=== PATIENT | female | born 1980 | race Caucasian/White ===

== ENCOUNTER → 2017-02-26 | Outpatient (CLI) | payer BC | LOC: MW.LAB 13:02 | PROVIDERS: ATTEND Internal Medicine | DX: E89.0 Postprocedural hypothyroidism (principal) | CPT/HCPCS: 36415; 84432; 84443; 86800 ==

== ENCOUNTER 2023-11-09 10:55 | Emergency (ER) | payer BC ==
[2023-11-09] MEDS ORDERED: Sodium Chloride 0.9% 2.5 ML Syringe FLUSH PRN (11:30)
[2023-11-09] MEDS ORDERED: Sodium Chloride 0.9% 10 ML Syringe FLUSH PRN (11:30)
[2023-11-09] MEDS ORDERED: Aspirin 81 MG Tab.Chew PO ONE (11:49)
[2023-11-09 12:03] LABS: BASOPHILS ABSOLUTE AUTO 0.05 K/uL (0.00-0.20); BASOPHILS PERCENT AUTO 0.7 % (0.0-1.0); EOSINOPHILS ABSOLUTE AUTO 0.17 K/uL (0.00-0.45); EOSINOPHILS PERCENT AUTO 2.2 % (0.0-6.0); HEMATOCRIT 42.1 % (37.0-47.0); HEMOGLOBIN 14.3 g/dL (12.0-16.0); IMMATURE GRAN ABSOLUTE AUTO 0.03 K/uL (0.00-0.05); IMMATURE GRAN PERCENT AUTO 0.4 % (0.0-0.4); LYMPHOCYTES ABSOLUTE AUTO 2.06 K/uL (1.00-4.80); LYMPHOCYTES PERCENT AUTO 27.1 % (24.0-44.0); MEAN CORPUSCULAR HEMOGLOBIN 27.1 pg (28.0-32.0); MEAN CORPUSCULAR VOLUME 79.9 fL (83.0-99.0); MEAN PLATELET VOLUME 11.9 fL (9.4-12.3); MONOCYTES ABSOLUTE AUTO 0.58 K/uL (0.00-0.80); MONOCYTES PERCENT AUTO 7.6 % (0.0-8.0); NEUTROPHILS ABSOLUTE AUTO 4.72 K/uL (1.80-7.70); PLATELET COUNT,PLT 205 K/uL (150-400); RED BLOOD CELL COUNT 5.27 M/uL (4.10-5.30); WHITE BLOOD CELL COUNT,WBC 7.61 K/uL (3.9-11.3)
[2023-11-09 12:19] LABS: HEMOGLOBIN A1C 5.8 %
[2023-11-09 12:33] LABS: ALANINE AMINOTRANSFERASE,ALT 16 IU/L (14-63); ALBUMIN 3.5 g/dL (3.4-5.0); ALKALINE PHOSPHATASE 48 U/L (46-116); ASPARTATE AMNIOTRANSFERASE,AST 12 IU/L (15-37); BILIRUBIN TOTAL 0.6 mg/dL (0.2-1.0); BLOOD UREA NITROGEN,BUN 11 mg/dL (7.0-18.0); CALCIUM 9.4 mg/dL (8.5-10.1); CARBON DIOXIDE,CO2 26.8 mmol/L (21.0-32.0); CHLORIDE,CL 103 mmol/L (98-107); CREATININE 0.6 mg/dL (0.6-1.0); GLUCOSE RANDOM 102 mg/dL (74-106); POTASSIUM,K 4.2 mmol/L (3.5-5.1); SODIUM,NA 140 mmol/L (136-145)
[2023-11-09 12:35] LABS: ESTIMATED GFR 114 mL/min (>60)
[2023-11-09] MEDS ORDERED: Iopamidol 755 MG/ML 500 ML Multipack Bottle IVPUSH STA (13:06)
[2023-11-09 19:31] VITALS: BP 129/86; PULSE 93
== END 2023-11-09 17:12 | disposition home or self-care (01) ==
LOC: MW.ED 10:55
DX: G45.9 Transient cerebral ischemic attack, unspecified (principal); I10 Essential (primary) hypertension; E78.00 Pure hypercholesterolemia, unspecified; E11.9 Type 2 diabetes mellitus without complications; Z79.82 Long term (current) use of aspirin; Z79.899 Other long term (current) drug therapy; Z88.1 Allergy status to other antibiotic agents
CPT/HCPCS: 36415; 70450; 70496; 70498; 70551; 80053; 83036; 84484; 84703; 85025; 93005; 93246; 93306; 99284; A9270; J3490; Q9967; 93010; 99285

== ENCOUNTER 2024-09-30 07:00 | Day surgery (SDC) | payer BC ==
[2024-09-30] MEDS ORDERED: Metoclopramide 10 MG/2 ML SDV IVPUSH PRN (07:13)
[2024-09-30] MEDS ORDERED: Morphine 2 MG/ML SYRINGE IVPUSH PRN (07:13)
[2024-09-30] MEDS ORDERED: fentaNYL 50 MCG/ML SDV IVPUSH PRN (07:13)
[2024-09-30] MEDS ORDERED: Albuterol 0.083% 2.5 MG/3 ML Neb Soln NEB PRN (07:13)
[2024-09-30] MEDS ORDERED: Phenylephrine HCl In 0.9% NaCl 1 MG/10 ML Syringe IVPUSH PRN (07:13)
[2024-09-30] MEDS ORDERED: Naloxone 0.4 MG/ML SDV IVPUSH PRN (07:13)
[2024-09-30] MEDS ORDERED: Ondansetron 4 MG/2 ML SDV IVPUSH PRN ×2 (07:13→11:06)
[2024-09-30] MEDS ORDERED: Bupivacaine 0.25% 30 ML SDV ONE ×2 (08:11→08:30)
[2024-09-30] MEDS ORDERED: Methylene Blue 100 MG/10 ML SDV ONE (08:11)
[2024-09-30] MEDS ORDERED: Propofol 200 MG/20 ML SDV ONE (08:25)
[2024-09-30] MEDS ORDERED: fentaNYL 100 MCG/2 ML SDV ONE ×2 (08:25→11:21)
[2024-09-30] MEDS ORDERED: Midazolam 1 MG/ML 2 ML SDV ONE (08:25)
[2024-09-30] MEDS ORDERED: Rocuronium Bromide 50 MG/5 ML Syringe ONE ×2 (08:26→09:51)
[2024-09-30] MEDS ORDERED: Lidocaine 2% 5 ML SDV ONE (08:26)
[2024-09-30] MEDS ORDERED: Ropivacaine 0.5% 5 MG/ML 30 ML SDV ONE (08:30)
[2024-09-30] MEDS ORDERED: Water For Injection, Sterile 20 ML ONE (08:50)
[2024-09-30] MEDS: Lactated Ringers 1,000 ML IV SCH (08:51)
[2024-09-30] MEDS ORDERED: dexmedeTOMIDine HCl 200 MCG/2 ML SDV ONE (08:51)
[2024-09-30] MEDS ORDERED: Sodium Chloride 0.9% 2.5 ML Syringe FLUSH PRN (08:58)
[2024-09-30] MEDS ORDERED: ceFAZolin 2 GM in Sodium Chloride 0.9% 50 ML IV ONE (08:58)
[2024-09-30] MEDS ORDERED: Sodium Chloride 0.9% 20 ML SDV IV PRN (08:58)
[2024-09-30] MEDS ORDERED: ceFAZolin 1 GM Vial ONE (09:22)
[2024-09-30] MEDS ORDERED: Fluorescein 5 ML Vial ONE (09:31)
[2024-09-30] MEDS ORDERED: Glycopyrrolate 0.2 MG/ML SDV ONE (09:42)
[2024-09-30] MEDS ORDERED: Ondansetron 4 MG/2 ML SDV ONE (10:13)
[2024-09-30] MEDS ORDERED: Ketorolac 30 MG/ML SDV ONE (10:13)
[2024-09-30] MEDS ORDERED: Sugammadex Sodium 200 MG/2 ML VIAL IV ONE (10:13)
[2024-09-30] MEDS ORDERED: Furosemide 40 MG/4 ML VIAL ONE (10:36)
[2024-09-30] MEDS ORDERED: Ketorolac 30 MG/ML SDV IVPUSH ONE (11:06)
[2024-09-30] MEDS ORDERED: Promethazine 25 MG/ML SDV IM PRN (11:06)
[2024-09-30] MEDS ORDERED: Sodium Chloride 0.9% 1,000 ML IV SCH (11:15)
[2024-09-30] MEDS: HYDROmorphone 1 MG/ML Syringe IVPUSH PRN (11:40)
[2024-09-30] MEDS: Morphine 4 MG/ML Syringe IVPUSH PRN (15:20)
[2024-09-30] MEDS: Ketorolac 30 MG/ML SDV IVPUSH SCH (16:39)
[2024-09-30] MEDS ORDERED: Glucagon,Human Recombinant 1 MG Vial IM PRN (18:48)
[2024-09-30] MEDS ORDERED: 50% Dextrose in Water 50 ML Syringe IVPUSH PRN (18:48)
[2024-09-30] MEDS: Insulin Regular, Human 100 Units/ML 10 ML Vial SUBCUT SCH (20:00)
[2024-09-30] MEDS: Acetaminophen/oxyCODONE 325-5 MG Tab PO PRN (20:36)
[2024-09-30] MEDS: Docusate Sodium 100 MG Cap PO SCH (20:40)
[2024-09-30] MEDS: Sodium Chloride 0.9% 10 ML Syringe FLUSH PRN (22:39)
[2024-10-01] MEDS: Acetaminophen/oxyCODONE 325-5 MG Tab PO PRN (00:45)
[2024-10-01 05:48] LABS: BASOPHILS ABSOLUTE AUTO 0.04 K/uL (0.00-0.20); BASOPHILS PERCENT AUTO 0.5 % (0.0-1.0); EOSINOPHILS ABSOLUTE AUTO 0.16 K/uL (0.00-0.45); HEMATOCRIT 36.6 % (37.0-47.0); HEMOGLOBIN 11.7 g/dL (12.0-16.0); IMMATURE GRAN ABSOLUTE AUTO 0.04 K/uL (0.00-0.05); IMMATURE GRAN PERCENT AUTO 0.5 % (0.0-0.4); LYMPHOCYTES ABSOLUTE AUTO 2.09 K/uL (1.00-4.80); LYMPHOCYTES PERCENT AUTO 25.8 % (24.0-44.0); MEAN CORPUSCULAR HEMOGLOBIN 26.3 pg (28.0-32.0); MEAN CORPUSCULAR VOLUME 82.2 fL (83.0-99.0); MEAN PLATELET VOLUME 12.1 fL (9.4-12.3); MONOCYTES ABSOLUTE AUTO 0.76 K/uL (0.00-0.80); MONOCYTES PERCENT AUTO 9.4 % (0.0-8.0); NEUTROPHILS ABSOLUTE AUTO 5.01 K/uL (1.80-7.70); NEUTROPHILS PERCENT AUTO 61.8 % (41.0-71.0); PLATELET COUNT,PLT 187 K/uL (150-400); RED BLOOD CELL COUNT 4.45 M/uL (4.10-5.30)
[2024-10-01 06:18] LABS: CALCIUM 8.5 mg/dL (8.5-10.1); CREATININE 0.8 mg/dL (0.6-1.0); EST CRCL DRUG DOSING (CG) 77.49 mL/min; POTASSIUM,K 3.6 mmol/L (3.5-5.1)
[2024-10-01 08:04] VITALS: BP 123/74; PULSE 77
== END 2024-10-01 11:13 | disposition home or self-care (01) ==
LOC: MW.SDS 07:00 → MW.OB 18:34 → MW.SDS 10-01 11:13
PROVIDERS: ATTEND Obstetrics & Gynecology
DX: D25.9 Leiomyoma of uterus, unspecified (principal); N80.03 Adenomyosis of the uterus; N83.8 Other noninflammatory disorders of ovary, fallopian tube and broad ligament; J45.909 Unspecified asthma, uncomplicated; E11.9 Type 2 diabetes mellitus without complications; I10 Essential (primary) hypertension; Z79.85 Long-term (current) use of injectable non-insulin antidiabetic drugs; Z79.899 Other long term (current) drug therapy
CPT/HCPCS: 36415; 58552; 64488; 80048; 82947; 85025; A9270; J0131; J0665; J0690; J1171; J1596; J1815; J1885; J1940; J2250; J2270; J2704; J2795; J3010; J3490; J7120; Q9968; 00944; J2405

== ENCOUNTER 2024-12-01 08:56 | Emergency (ER) | payer BC ==
[2024-12-01 10:24] LABS: BASOPHILS ABSOLUTE AUTO 0.08 K/uL (0.00-0.20); BASOPHILS PERCENT AUTO 0.9 % (0.0-1.0); EOSINOPHILS ABSOLUTE AUTO 0.66 K/uL (0.00-0.45); EOSINOPHILS PERCENT AUTO 7.7 % (0.0-6.0); HEMATOCRIT 45.2 % (37.0-47.0); HEMOGLOBIN 15.1 g/dL (12.0-16.0); IMMATURE GRAN ABSOLUTE AUTO 0.03 K/uL (0.00-0.05); IMMATURE GRAN PERCENT AUTO 0.3 % (0.0-0.4); LYMPHOCYTES ABSOLUTE AUTO 2.08 K/uL (1.00-4.80); LYMPHOCYTES PERCENT AUTO 24.2 % (24.0-44.0); MEAN CORPUSCULAR HEMOGLOBIN 26.5 pg (28.0-32.0); MEAN CORPUSCULAR HGB CONC 33.4 g/dL (32.0-36.0); MEAN CORPUSCULAR VOLUME 79.3 fL (83.0-99.0); MEAN PLATELET VOLUME 11.7 fL (9.4-12.3); MONOCYTES ABSOLUTE AUTO 0.64 K/uL (0.00-0.80); MONOCYTES PERCENT AUTO 7.4 % (0.0-8.0); NEUTROPHILS ABSOLUTE AUTO 5.11 K/uL (1.80-7.70); NEUTROPHILS PERCENT AUTO 59.5 % (41.0-71.0); PLATELET COUNT,PLT 224 K/uL (150-400)
[2024-12-01 10:52] LABS: ALANINE AMINOTRANSFERASE,ALT 28 IU/L (14-63); ALKALINE PHOSPHATASE 57 U/L (46-116); ASPARTATE AMNIOTRANSFERASE,AST 19 IU/L (15-37); BILIRUBIN TOTAL 0.6 mg/dL (0.2-1.0); BLOOD UREA NITROGEN,BUN 10 mg/dL (7.0-18.0); CALCIUM 9.2 mg/dL (8.5-10.1); CARBON DIOXIDE,CO2 27.6 mmol/L (21.0-32.0); CHLORIDE,CL 103 mmol/L (98-107); CREATININE 0.6 mg/dL (0.6-1.0); EST CRCL DRUG DOSING (CG) 103.32 mL/min; GLUCOSE RANDOM 107 mg/dL (74-106); POTASSIUM,K 4.2 mmol/L (3.5-5.1); PROTEIN TOTAL,TP 7.9 g/dL (6.4-8.2); SODIUM,NA 138 mmol/L (136-145)
[2024-12-01 10:54] LABS: ESTIMATED GFR 113 mL/min (>60)
[2024-12-01 12:01] VITALS: BP 136/86; PULSE 84
== END 2024-12-01 12:00 | disposition home or self-care (01) ==
LOC: MW.ED 08:56
DX: K21.9 Gastro-esophageal reflux disease without esophagitis (principal); I10 Essential (primary) hypertension; J45.909 Unspecified asthma, uncomplicated; E78.00 Pure hypercholesterolemia, unspecified; E11.9 Type 2 diabetes mellitus without complications; Z88.1 Allergy status to other antibiotic agents; Z79.82 Long term (current) use of aspirin; Z79.4 Long term (current) use of insulin; Z79.890 Hormone replacement therapy; Z79.899 Other long term (current) drug therapy; Z90.49 Acquired absence of other specified parts of digestive tract
CPT/HCPCS: 36415; 71045; 71045-26; 80053; 84484; 85025; 93005; 93975; 93975-26; 99284

== ENCOUNTER 2025-08-14 07:29 | Day surgery (SDC) | payer BC ==
[2025-08-14] MEDS ORDERED: Propofol 200 MG/20 ML SDV ONE ×4 (08:12→09:47)
[2025-08-14] MEDS: Lactated Ringers 1,000 ML IV SCH (08:14)
[2025-08-14 14:03] VITALS: BP 126/78; PULSE 82
== END 2025-08-14 10:30 | disposition home or self-care (01) ==
LOC: MW.SDS 07:29
PROVIDERS: ATTEND Surgery
DX: Z12.11 Encounter for screening for malignant neoplasm of colon (principal); K29.50 Unspecified chronic gastritis without bleeding; K31.89 Other diseases of stomach and duodenum; K31.7 Polyp of stomach and duodenum; K21.00 Gastro-esophageal reflux disease with esophagitis, without bleeding; K51.40 Inflammatory polyps of colon without complications; K44.9 Diaphragmatic hernia without obstruction or gangrene; E11.9 Type 2 diabetes mellitus without complications; I10 Essential (primary) hypertension; E78.00 Pure hypercholesterolemia, unspecified; Z88.1 Allergy status to other antibiotic agents; Z79.82 Long term (current) use of aspirin; Z79.899 Other long term (current) drug therapy; Z79.890 Hormone replacement therapy; Z79.84 Long term (current) use of oral hypoglycemic drugs
CPT/HCPCS: 43239; 45385; J2003; J2704; J7120; 00813